=== PATIENT | male | born 1990 | race African-American/Black ===

== ENCOUNTER 2020-06-20 12:20 | Emergency (ER) | payer SELFPAY, OTHER ==
--- NOTE | 2020-06-20 13:55 | RAD REPORT ---
EXAM DESCRIPTION: RAD - Chest Single View - 06/20/2020 1:48 pm CLINICAL HISTORY: COUGH Chest pain. COMPARISON: No comparisons FINDINGS: Portable technique limits examination quality. The lungs are grossly clear. The heart is normal in size. No displaced fractures. IMPRESSION: No acute intrathoracic process suspected.
--- NOTE | 2020-06-20 14:39 | ER ---
Nurse's Notes [facility] Name: Randolph Soto Age: 30 yrs Sex: Male : 1990 Arrival Date: 06/20/2020 Time: 12:23 Bed 23 Private MD: Diagnosis: Acute upper respiratory infection, unspecified Presentation: 06/20 12:47 Chief complaint: Patient states: Sore throat, cough/congestion, body aches, SOB for 1 ll1 day. Coronavirus screen: Client denies travel out of the [place] in the last 14 days. congestion, cough unrelated to allergies, difficulty breathing, fatigue, muscle pain, nausea, sore throat, loss of taste or smell, Client presents with at least one sign or symptom that may indicate coronavirus-19. Standard/surgical mask placed on the client. Ebola Screen: Patient denies travel to an Ebola-affected area in the 21 days before illness onset. Initial Sepsis Screen: Does the patient meet any 2 criteria? No. Patient's initial sepsis screen is negative. Risk Assessment: Do you want to hurt yourself or someone else? Patient reports no desire to harm self or others. Onset of symptoms was June 20, 2020. 12:47 Method Of Arrival: Wheelchair ll1 12:47 Acuity: [place] 3 ll1 13:41 Initial Sepsis Screen: Does the patient have a suspected source of infection? No. ca1 Patient's initial sepsis screen is negative. Historical: - Allergies: 12:49 No Known Allergies; ll1 - PMHx: 12:49 Asthma; ll1 - PSHx: 12:49 None; ll1 - Immunization history:: Flu vaccine is not up to date. - Social history:: Smoking status: Patient reports the use of cigarette tobacco products, smokes one pack cigarettes per day. Screenin:52 Abuse screen: Denies threats or abuse. Denies injuries from another. Nutritional ca1 screening: No deficits noted. Tuberculosis screening: No symptoms or risk factors identified. Fall Risk None identified. Assessment: 12:52 General: Appears in no apparent distress. comfortable, Behavior is calm, cooperative, ca1 appropriate for age. Pain: Pain: Complains of pain in throat Pain began today. Neuro: Level of Consciousness is awake, alert, obeys commands, Oriented to person, place, time, situation. Cardiovascular: Heart tones S1 S2 present Capillary refill < 3 seconds Patient's skin is warm and dry. Respiratory: Airway is patent Respiratory effort is even, unlabored, Respiratory pattern is regular, symmetrical, Breath sounds are clear bilaterally. Respiratory: Reports shortness of breath cough that is productive. GI: Abdomen is flat, non-distended, Bowel sounds present X 4 quads. Abd is soft and non tender X 4 quads. : No signs and/or symptoms were reported regarding the genitourinary system. EENT: Throat is clear Reports nasal congestion nasal discharge. Derm: Skin is intact, is healthy with good turgor, Skin is pink, warm \T\ dry. Musculoskeletal: Circulation, motion, and sensation intact. Capillary refill < 3 seconds. 13:45 Reassessment: Patient appears in no apparent distress at this time. Patient and/or ca1 family updated on plan of care and expected duration. Pain level reassessed. Patient is alert, oriented x 3, equal unlabored respirations, skin warm/dry/pink. 14:57 Reassessment: Patient appears in no apparent distress at this time. Patient and/or ca1 family updated on plan of care and expected duration. Pain level reassessed. Patient is alert, oriented x 3, equal unlabored respirations, skin warm/dry/pink. Vital Signs: 12:47 BP 123 / 83; Pulse 73; Resp 18; Temp 98.9; Pulse Ox 100% ; Weight 70.31 kg; Height 5 ll1 ft. 11 in. (180.34 cm); Pain 6/10; 13:48 BP 106 / 90; Pulse 83; Resp 16 S; Pulse Ox 100% on R/A; ca1 14:57 BP 121 / 81; Pulse 70; Resp 18 S; Pulse Ox 100% on R/A; ca1 12:47 Body Mass Index 21.62 (70.31 kg, 180.34 cm) ll1 ED Course: 12:23 Patient arrived in ED. mr 12:49 Triage completed. ll1 12:50 Arm band placed on Patient placed in an exam room, on a stretcher. ll1 12:52 Patient has correct armband on for positive identification. Bed in low position. Call ca1 light in reach. Side rails up X 1. Pulse ox on. NIBP on. 12:52 No provider procedures requiring assistance completed. Patient did not have IV access ca1 during this emergency room visit. 12:53 Parisa Tsang FNP-C [facility]. kb 12:53 Tor Caldera MD is Attending Physician. kb 13:04 Radha Kidd, RN is Primary Nurse. ca1 13:20 X-ray(s) taken. jp3 13:25 Flu and/or RSV swab sent to lab. Strep swab sent to lab. PT swabbed for COVID-19. jp3 Patient maintains SpO2 saturation greater than 95% on room air. 13:25 Strep Sent, Flu, COVID-19 Sent. jp3 13:48 Chest Single View XRAY In Process Unspecified. EDMS Administered Medications: No medications were administered Outcome: 14:39 Discharge ordered by MD. kb 14:58 Discharged to home ambulatory, with family. ca1 14:58 Condition: stable 14:58 Discharge instructions given to patient, Instructed on discharge instructions, follow up and referral plans. Demonstrated understanding of instructions, follow-up care. 14:58 Patient left the ED. ca1 Addendum: 06/22/2020 13:17 Addendum: COVID-19 Result: Negative result given to RN to notify pt. Attempted to i w contact pt regarding negative COVID-19 swab results. Unable to leave voice mail due to the number provided was either not a working number, the voice mail has not been set up, or the voice mailbox is full.. 06/23/2020 08:37 Addendum: COVID-19 Result: Negative result given to RN to notify pt. Notified pt of i w negative COVID 19 swab results. Pt advised that even with a negative test result they should remain in isolation until symptom free for 3 days without medication. Pt also advised to return to the ED for worsening symptoms. Signatures: Dispatcher [employer] EDMS Parisa Tsang FNP-C TECHNICAL SUPPORT ANALYST-Ckb Margarita Lomeli Nasrin Mckeon RN RN iw Pisarski, Jacob jp3 Radha Kidd RN RN ca1 Ashly Allison RN RN ll1 Corrections: (The following items were deleted from the chart) 06/20 13:32 13:31 Group A Streptococcus Rapid Sc+BA.LAB.BRZ drawn and sent. jp3 jp 13:32 13:31 Influenza Screen (A \T\ B)+BA.LAB.BRZ drawn and sent. jp3 jp3 13:32 13:31 CORONAVIRUS+MR.VENKAT.SIERRA drawn and sent. jp3 jp3 48 12:52 Respiratory: Airway is patent Respiratory effort is even, unlabored, Respiratory ca1 pattern is regular, symmetrical, Breath sounds are clear bilaterally. ca1 :48 12:52 Respiratory: Reports shortness of breath cough that is ca1 ca1 12:52 EENT: Throat is clear ca1 ca1
--- NOTE | 2020-06-20 14:40 | EDPHYS ---
Physician Documentation [facility] Name: Randolph Soto Age: 30 yrs Sex: Male : 1990 Arrival Date: 06/20/2020 Time: 12:23 Bed 23 Private MD: ED Physician Tor Caldera HPI: 06/20 14:42 This 30 yrs old Black Male presents to ER via Wheelchair with complaints of Sore kb Throat, Breathing Difficulty. 14:42 The patient or guardian reports cough, that is intermittent, described as mild, flu kb symptoms, low-grade fever, myalgias. Onset: The symptoms/episode began/occurred this morning. Severity of symptoms: At their worst the symptoms were mild, in the emergency department the symptoms are unchanged. Modifying factors: The symptoms are alleviated by nothing, the symptoms are aggravated by nothing. Associated signs and symptoms: Pertinent positives: fever, sore throat, Pertinent negatives: chest pain, diarrhea, ear ache, nausea, rhinorrhea, vomiting. The patient has not experienced similar symptoms in the past. The patient has not recently seen a physician. pt reports cough, congestion, fever, chills, lack of smell and taste, and sore throat that presented this morning upon waking. Historical: - Allergies: 12:49 No Known Allergies; ll1 - PMHx: 12:49 Asthma; ll1 - PSHx: 12:49 None; ll1 - Immunization history:: Flu vaccine is not up to date. - Social history:: Smoking status: Patient reports the use of cigarette tobacco products, smokes one pack cigarettes per day. ROS: 14:42 Cardiovascular: Negative for chest pain, palpitations, and edema, Abdomen/GI: Negative kb for abdominal pain, nausea, vomiting, diarrhea, and constipation, MS/Extremity: Negative for injury and deformity, Skin: Negative for injury, rash, and discoloration, Neuro: Negative for headache, weakness, numbness, tingling, and seizure. 14:42 Constitutional: Positive for body aches, chills, fatigue, fever, malaise. 14:42 ENT: Positive for rhinorrhea, sinus congestion, sore throat. 14:42 Respiratory: Positive for cough, Negative for dyspnea on exertion, hemoptysis, orthopnea, pleurisy, shortness of breath, sputum production, wheezing. Exam: 14:42 Constitutional: This is a well developed, well nourished patient who is awake, alert, kb and in no acute distress. Head/Face: Normocephalic, atraumatic. ENT: Nares patent. No nasal discharge, no septal abnormalities noted. Tympanic membranes are normal and external auditory canals are clear. Oropharynx with no redness, swelling, or masses, exudates, or evidence of obstruction, uvula midline. Mucous membranes moist. Neck: Trachea midline, no thyromegaly or masses palpated, and no cervical lymphadenopathy. Supple, full range of motion without nuchal rigidity, or vertebral point tenderness. No Meningismus. Chest/axilla: Normal chest wall appearance and motion. Nontender with no deformity. No lesions are appreciated. Cardiovascular: Regular rate and rhythm with a normal S1 and S2. No gallops, murmurs, or rubs. Normal PMI, no JVD. No pulse deficits. Respiratory: Lungs have equal breath sounds bilaterally, clear to auscultation and percussion. No rales, rhonchi or wheezes noted. No increased work of breathing, no retractions or nasal flaring. Abdomen/GI: Soft, non-tender, with normal bowel sounds. No distension or tympany. No guarding or rebound. No evidence of tenderness throughout. Skin: Warm, dry with normal turgor. Normal color with no rashes, no lesions, and no evidence of cellulitis. MS/ Extremity: Pulses equal, no cyanosis. Neurovascular intact. Full, normal range of motion. Neuro: Awake and alert, GCS 15, oriented to person, place, time, and situation. Cranial nerves II-XII grossly intact. Motor strength 5/5 in all extremities. Sensory grossly intact. Cerebellar exam normal. Normal gait. Vital Signs: 12:47 BP 123 / 83; Pulse 73; Resp 18; Temp 98.9; Pulse Ox 100% ; Weight 70.31 kg; Height 5 ll1 ft. 11 in. (180.34 cm); Pain 6/10; 13:48 BP 106 / 90; Pulse 83; Resp 16 S; Pulse Ox 100% on R/A; ca1 14:57 BP 121 / 81; Pulse 70; Resp 18 S; Pulse Ox 100% on R/A; ca1 12:47 Body Mass Index 21.62 (70.31 kg, 180.34 cm) ll1 MDM: 12:53 Patient medically screened. kb 14:39 Data reviewed: vital signs, nurses notes. Data interpreted: Pulse oximetry: on room air kb is 100 %. Interpretation: normal. Counseling: I had a detailed discussion with the patient and/or guardian regarding: the historical points, exam findings, and any diagnostic results supporting the discharge/admit diagnosis, lab results, radiology results, the need for outpatient follow up, a family practitioner, to return to the emergency department if symptoms worsen or persist or if there are any questions or concerns that arise at home. 06/20 12:53 Order name: Flu; Complete Time: 14:40 kb 06/20 12:53 Order name: Strep; Complete Time: 14:40 kb 06/20 12:53 Order name: Chest Single View XRAY; Complete Time: 13:56 kb 06/20 13:02 Order name: COVID-19 kb 06/20 14:43 Order name: Throat Culture EDMS Administered Medications: No medications were administered Disposition: 17:58 Co-signature as Attending Physician, Tor Caldera MD. rn Disposition: 06/20/20 14:39 Discharged to Home. Impression: Acute upper respiratory infection, unspecified. - Condition is Stable. - Discharge Instructions: Upper Respiratory Infection, Adult, [id number], COVID-19. - Medication Reconciliation Form, Thank You Letter, Antibiotic Education, Prescription Opioid Use, Work release form form. - Follow up: Emergency Department; When: As needed; Reason: Worsening of condition. Follow up: Private Physician; When: 2 - 3 days; Reason: Recheck today's complaints, Continuance of care, Re-evaluation by your physician. Signatures: Dispatcher [employer] EDMS Parisa Tsang, CHIEF WARDEN-C CHIEF WARDEN-Tor Workman MD MD rn Acob, Radha, RN RN ca1 Ashly Allison RN RN ll1 Corrections: (The following items were deleted from the chart) 14:58 14:39 06/20/2020 14:39 Discharged to Home. Impression: Acute upper respiratory ca1 infection, unspecified. Condition is Stable. Forms are Medication Reconciliation Form, Thank You Letter, Antibiotic Education, Prescription Opioid Use. Follow up: Emergency Department; When: As needed; Reason: Worsening of condition. Follow up: Private Physician; When: 2 - 3 days; Reason: Recheck today's complaints, Continuance of care, Re-evaluation by your physician. kb
[2020-06-20 15:41] VITALS: TEMP 98.9; O2SAT 100
[2020-06-20 15:44] VITALS: BP 121/81
== END 2020-06-20 14:58 | disposition home or self-care (01) ==
LOC: ER 12:20
DX: J06.9 Acute upper respiratory infection, unspecified (principal); Z20.828 Contact with and (suspected) exposure to other viral communicable diseases; F17.210 Nicotine dependence, cigarettes, uncomplicated
CPT/HCPCS: 71045; 87070; 87081; 87804; 99284; U0002

== ENCOUNTER 2021-01-21 09:45 | Emergency (ER) | payer SELFPAY ==
[2021-01-21] MEDS ORDERED: MORPHINE 4 MG/ML SYR ONE ×2 (11:00→11:34)
[2021-01-21] MEDS ORDERED: ONDANSETRON 4 MG/2 ML VIAL ONE (11:00)
[2021-01-21 11:04] LABS: BUN Blood Urea Nitrogen 13 mg/dL (7-18); Bicarbonate 26 mmol/L (21-32); Glucose Level 85 mg/dL (74-106); Potassium 4.2 mmol/L (3.5-5.1); Sodium Level 141 mmol/L (136-145)
[2021-01-21 11:08] LABS: Absolute Lymphocytes (CBC) 1.8 K/uL (0.7-4.9); Basophils % 1.1 % (0-1.3); Hematocrit 42.8 % (39.6-49.0); Lymphocytes % 24.1 % (15.3-44.8); MPV 7.9 fL (7.6-11.3)
--- NOTE | 2021-01-21 11:30 | RAD REPORT ---
EXAM DESCRIPTION: CT - Head C Spine Cap Amira Tamez - 01/21/2021 11:11 am CLINICAL HISTORY: Trauma, head and neck injury. Chest, abdomen and pelvis pain. Back and neck pain COMPARISON: No comparisons TECHNIQUE: CT head without contrast. CT cervical spine without contrast with coronal and sagittal reformatted images. CT chest, abdomen and pelvis with IV contrast (approximately 100 mL nonionic IV contrast) with juarez l and sagittal reformatted images of the spine. All CT scans are performed using dose optimization technique as appropriate and may include automated exposure control or mA/KV adjustment according to patient size. FINDINGS: CT HEAD WITHOUT CONTRAST: No intracranial hemorrhage, hydrocephalus or extra-axial fluid collection. No areas of brain edema o r midline shift. The paranasal sinuses and mastoids are clear. The calvarium is intact. CT CERVICAL SPINE WITHOUT CONTRAST: No fracture or subluxation. The prevertebral soft tissues are normal in thickness. CT CHEST, ABDOMEN, PELVIS WITH CONTRAST: The lungs are clear.No pneumothorax or pericardial/pleural fluid. No evidence of intra-abdominal visceral injury, free fluid or free air. No concerning pelvic findings. No fractures. IMPRESSION: Negative for acute traumatic findings.
--- NOTE | 2021-01-21 11:55 | EDPHYS ---
Physician Documentation [facility] Name: Randolph Soto Age: 30 yrs Sex: Male : 1990 Arrival Date: 01/21/2021 Time: 09:50 Bed 5 Private MD: ED Physician Matthew Post HPI: 01/21 10:43 This 30 yrs old Black Male presents to ER via Ambulatory with complaints of Fall Injury pm1 -Painful Breathing. 10:43 Onset: The symptoms/episode began/occurred just prior to arrival. Associated signs and pm1 symptoms: Pertinent positives: upper back pain and pain with deep breathing, Pertinent negatives: chest pain, shortness of breath, Headache or neck pain. No extremity pain or hip pain. No abdominal pain. 10:43 Modifying factors: The patient symptoms are alleviated by nothing, the patient symptoms pm1 are aggravated by movement. The patient has not experienced similar symptoms in the past. The patient has not recently seen a physician. Patient tripped on toy on stairs in apartment complex. he was carrying his 1.3 year old child so he spun while falling and landed on his back and slid down 10 steps of stairs. No LOC, head injury or headache. Patient denies neck pain. Historical: - Allergies: 10:08 No Known Allergies; jl7 - Home Meds: 10:08 None [Active]; jl7 - PMHx: 10:08 Asthma; jl7 - PSHx: 10:08 None; jl7 - Immunization history:: Adult Immunizations up to date, Client reports receiving the 1st dose of the Covid vaccine, January 19, 2021. - Social history:: Smoking status: Patient reports the use of cigarette tobacco products, smokes one-half pack cigarettes per day. ROS: 10:43 Constitutional: Negative for fever, chills, and weight loss, Eyes: Negative for injury, pm1 pain, redness, and discharge, ENT: Negative for injury, pain, and discharge, Neck: Negative for injury, pain, and swelling, Cardiovascular: Negative for chest pain, palpitations, and edema. 10:43 Abdomen/GI: Negative for abdominal pain, nausea, vomiting, diarrhea, and constipation. 10:43 MS/Extremity: Negative for injury and deformity, Skin: Negative for injury, rash, and discoloration, Neuro: Negative for headache, weakness, numbness, tingling, and seizure. 10:43 Respiratory: Positive for pain with deep breathing, Negative for cough, shortness of breath. 10:43 Back: Positive for pain to upper back. Exam: 10:43 Constitutional: This is a well developed, well nourished patient who is awake, alert, pm1 and in no acute distress. Head/Face: Normocephalic, atraumatic. Eyes: Pupils equal round and reactive to light, extra-ocular motions intact. Lids and lashes normal. Conjunctiva and sclera are non-icteric and not injected. Cornea within normal limits. Periorbital areas with no swelling, redness, or edema. ENT: Nares patent. No nasal discharge, no septal abnormalities noted. Tympanic membranes are normal and external auditory canals are clear. Oropharynx with no redness, swelling, or masses, exudates, or evidence of obstruction, uvula midline. Mucous membranes moist. 10:43 Chest/axilla: Normal chest wall appearance and motion. Nontender with no deformity. No lesions are appreciated. Cardiovascular: Regular rate and rhythm with a normal S1 and S2. No gallops, murmurs, or rubs. Normal PMI, no JVD. No pulse deficits. Respiratory: Lungs have equal breath sounds bilaterally, clear to auscultation and percussion. No rales, rhonchi or wheezes noted. No increased work of breathing, no retractions or nasal flaring. Abdomen/GI: Soft, non-tender, with normal bowel sounds. No distension or tympany. No guarding or rebound. No evidence of tenderness throughout. 10:43 Skin: Warm, dry with normal turgor. Normal color with no rashes, no lesions, and no evidence of cellulitis. MS/ Extremity: Pulses equal, no cyanosis. Neurovascular intact. Full, normal range of motion. 10:43 Neck: C-spine: vertebral tenderness, appreciated at lower neck. 10:43 Back: pain, of the left scapular area and right scapular area, normal spinal alignment noted, vertebral tenderness not present on back. 10:43 Neuro: Orientation: is normal, Mentation: is normal, Motor: is normal, moves all fours, Sensation: is normal, no obvious gross deficits, Gait: is steady, at a normal pace, without difficulty. Vital Signs: 10:05 BP 139 / 91; Pulse 68; Resp 17; Temp 97.6; Pulse Ox 100% ; Weight 70.31 kg; Height 5 jl7 ft. 11 in. (180.34 cm); Pain 8/10; 11:19 BP 123 / 77; Pulse 66; Resp 16; Pulse Ox 100% ; sv 11:45 BP 127 / 77; Pulse 56; Resp 18; Pulse Ox 99% on R/A; Pain 6/10; ss 10:05 Body Mass Index 21.62 (70.31 kg, 180.34 cm) jl7 MDM: 10:14 Patient medically screened. adan 11:54 Data reviewed: vital signs. Data interpreted: Pulse oximetry: on room air is 100 %. pm1 Interpretation: normal. Counseling: I had a detailed discussion with the patient and/or guardian regarding: the historical points, exam findings, and any diagnostic results supporting the discharge/admit diagnosis, lab results, radiology results, the need for outpatient follow up, to return to the emergency department if symptoms worsen or persist or if there are any questions or concerns that arise at home. 01/21 10:26 Order name: Basic Metabolic Panel; Complete Time: 11:14 pm1 01/21 10:26 Order name: CBC with Diff; Complete Time: 11:14 pm1 01/21 10:26 Order name: CT Traumagram (Head C Spine CAP W Con); Complete Time: 11:33 pm1 01/21 10:26 Order name: Type And Screen; Complete Time: 11:31 pm1 01/21 10:26 Order name: Labs collected and sent; Complete Time: 10:44 pm1 01/21 10:27 Order name: IV Saline Lock; Complete Time: 10:44 pm01/21 10:27 Order name: C-Collar; Complete Time: 10:44 pm1 Administered Medications: 10:40 Drug: Zofran (Ondansetron) 4 mg Route: IVP; Site: right antecubital; em 11:15 Follow up: Response: No adverse reaction em 10:42 Drug: morphine 4 mg Route: IVP; Site: right antecubital; em 11:10 Follow up: Response: No adverse reaction; No change in condition; Pain is unchanged, em physician notified 11:15 Drug: morphine 4 mg Route: IVP; Site: right antecubital; em 12:06 Follow up: Response: No adverse reaction; Marked relief of symptoms; Pain is decreased; ss RASS: Alert and Calm (0) Disposition: 01/21/21 11:55 Discharged to Home. Impression: Contusion of back wall of thorax, Strain of muscle, fascia and tendon at neck level, Fall (on) (from) other stairs and steps. - Condition is Stable. - Discharge Instructions: Contusion, Muscle Strain. - Prescriptions for Tylenol- Codeine #3 300-30 mg Oral Tablet - take 2 tablets by ORAL route every 4-6 hours As needed; 20 tablet. Cyclobenzaprine 10 mg Oral Tablet - take 1 tablet by ORAL route every 8 hours As needed; 30 tablet. Diclofenac Sodium 75 mg Oral Tablet, Delayed Release (E.C.) - take 1 tablet by ORAL route 2 times per day As needed; 30 tablet. - Medication Reconciliation Form, Thank You Letter, Antibiotic Education, Prescription Opioid Use, Work release form form. - Follow up: Emergency Department; When: As needed; Reason: Worsening of condition. Follow up: Private Physician; When: 2 - 3 days; Reason: Recheck today's complaints, Continuance of care, Re-evaluation by your physician. - Problem is new. - Symptoms have improved. Addendum: 01/23/2021 09:39 Co-signature as Attending Physician, Matthew Post MD I agree with the assessment and c ruiz plan of care. Signatures: Dispatcher [employer] Matthew Samuel MD MD cha Munoz, Edgar, RN RN em Jean Claude Zamora, CAROLINE ZOO VETERINARIAN pm1 Alejandro Tyler RN RN jl7 Alexia Quirzo RN ss Corrections: (The following items were deleted from the chart) 01/21 12:11 11:55 01/21/2021 11:55 Discharged to Home. Impression: Contusion of back wall of em thorax; Strain of muscle, fascia and tendon at neck level; Fall (on) (from) other stairs and steps. Condition is Stable. Forms are Work release form, Medication Reconciliation Form, Thank You Letter, Antibiotic Education, Prescription Opioid Use. Follow up: Emergency Department; When: As needed; Reason: Worsening of condition. Follow up: Private Physician; When: 2 - 3 days; Reason: Recheck today's complaints, Continuance of care, Re-evaluation by your physician. Problem is new. Symptoms have improved. pm1
--- NOTE | 2021-01-21 11:55 | ER ---
Nurse's Notes [facility] Name: Randolph Soto Age: 30 yrs Sex: Male : 1990 Arrival Date: 01/21/2021 Time: 09:50 Bed 5 Private MD: Diagnosis: Contusion of back wall of thorax;Strain of muscle, fascia and tendon at neck level;Fall (on) (from) other stairs and steps Presentation: 01/21 10:05 Chief complaint: Patient states: Tripped over a toy on the stairs and fell straight jl7 onto the concrete, fell from 10 steps up straight onto ground, c/o upper back pain and difficulty taking a deep breath, pain in the back with deep breaths. Coronavirus screen: Client denies travel out of the [place] in the last 14 days. At this time, the client does not indicate any symptoms associated with coronavirus-19. Ebola Screen: No symptoms or risks identified at this time. Initial Sepsis Screen: Does the patient meet any 2 criteria? No. Patient's initial sepsis screen is negative. Does the patient have a suspected source of infection? No. Patient's initial sepsis screen is negative. Risk Assessment: Do you want to hurt yourself or someone else? Patient reports no desire to harm self or others. Onset of symptoms was January 21, 2021 at 09:50. Care prior to arrival: None. 10:05 Method Of Arrival: Ambulatory jl7 10:05 Acuity: [place] 3 jl7 Triage Assessment: 10:08 General: Appears in no apparent distress. uncomfortable, Behavior is calm, cooperative, jl7 appropriate for age. Pain: Complains of pain in thoracic area Pain currently is 8 out of 10 on a pain scale. Musculoskeletal: Tenderness present in thoracic area. Historical: - Allergies: 10:08 No Known Allergies; jl7 - Home Meds: 10:08 None [Active]; jl7 - PMHx: 10:08 Asthma; jl7 - PSHx: 10:08 None; jl7 - Immunization history:: Adult Immunizations up to date, Client reports receiving the 1st dose of the Covid vaccine, January 19, 2021. - Social history:: Smoking status: Patient reports the use of cigarette tobacco products, smokes one-half pack cigarettes per day. Screenin:15 Abuse screen: Denies threats or abuse. Denies injuries from another. Nutritional sv screening: No deficits noted. Tuberculosis screening: No symptoms or risk factors identified. Fall Risk None identified. Assessment: 10:30 General: Appears in no apparent distress. uncomfortable, Behavior is calm, cooperative. em Pain: Complains of pain in back of neck and back and thoracic area Pain currently is 8 out of 10 on a pain scale. Neuro: Level of Consciousness is awake, alert, obeys commands, Oriented to person, place, time, situation, Denies LOC or head injury. Cardiovascular: Capillary refill < 3 seconds Patient's skin is warm and dry. Respiratory: Airway is patent Respiratory effort is even, unlabored, Respiratory pattern is regular, symmetrical. GI: Patient currently denies nausea, vomiting. Derm: Skin is intact, is healthy with good turgor, Skin is pink, warm \T\ dry. Musculoskeletal: Capillary refill < 3 seconds, Range of motion: intact in all extremities. 11:10 Reassessment: Patient appears in no apparent distress at this time. reports pain is em unchanged. 11:45 Reassessment: Patient appears in no apparent distress at this time. Patient and/or ss family updated on plan of care and expected duration. Pain level reassessed. Patient is alert, oriented x 3, equal unlabored respirations, skin warm/dry/pink. Vital Signs: 10:05 BP 139 / 91; Pulse 68; Resp 17; Temp 97.6; Pulse Ox 100% ; Weight 70.31 kg; Height 5 jl7 ft. 11 in. (180.34 cm); Pain 8/10; 11:19 BP 123 / 77; Pulse 66; Resp 16; Pulse Ox 100% ; sv 11:45 BP 127 / 77; Pulse 56; Resp 18; Pulse Ox 99% on R/A; Pain 6/10; ss 10:05 Body Mass Index 21.62 (70.31 kg, 180.34 cm) jl7 ED Course: 09:50 Patient arrived in ED. ds1 10:08 Triage completed. jl7 10:08 Arm band placed on right wrist. jl7 10:10 Jean Claude Zamora NP is PHCP. pm1 10:10 Matthew Post MD is Attending Physician. pm1 10:11 Mariama Cassidy RN is Primary Nurse. sv 10:15 Patient has correct armband on for positive identification. Bed in low position. Call light in reach. 10:30 Initial lab(s) drawn, by me, sent to lab. EKG done, by ED staff, reviewed by Jean Claude Zamora ADMINISTRATIVE SUPPORT CLERK. Inserted saline lock: 20 gauge in right antecubital area, using aseptic technique. Blood collected. 10:40 Rigid cervical collar applied and checked by physician. em 11:11 CT Traumagram (Head C Spine CAP W Con) In Process Unspecified. EDMS 12:05 No provider procedures requiring assistance completed. IV discontinued, intact, ss bleeding controlled, No redness/swelling at site. Pressure dressing applied. Administered Medications: 10:40 Drug: Zofran (Ondansetron) 4 mg Route: IVP; Site: right antecubital; em 11:15 Follow up: Response: No adverse reaction em 10:42 Drug: morphine 4 mg Route: IVP; Site: right antecubital; em 11:10 Follow up: Response: No adverse reaction; No change in condition; Pain is unchanged, em physician notified 11:15 Drug: morphine 4 mg Route: IVP; Site: right antecubital; em 12:06 Follow up: Response: No adverse reaction; Marked relief of symptoms; Pain is decreased; ss RASS: Alert and Calm (0) Outcome: 11:55 Discharge ordered by MD. pm1 12:10 Discharged to home ambulatory, with family. em 12:10 Condition: good 12:10 Discharge instructions given to patient, Instructed on discharge instructions, follow up and referral plans. no drinking with medication, no driving heavy equipment, medication usage, Demonstrated understanding of instructions, follow-up care, medications, Prescriptions given X 3. 12:11 Patient left the ED. em Signatures: Dispatcher [employer] Mariama Saunders RN RN sv Munoz, Edgar, RN RN Halima Villa ds1 Alexia Quiroz RN RN ss Marinas, Patrick, NP ADMINISTRATIVE SUPPORT CLERK pm1 Alejandro Tyler RN RN jl7
[2021-01-21 12:35] VITALS: TEMP 97.6
[2021-01-21 12:38] VITALS: BP 127/77; O2SAT 99
== END 2021-01-21 12:11 | disposition home or self-care (01) ==
LOC: ER 09:45
DX: S16.1XXA Strain of muscle, fascia and tendon at neck level, initial encounter (principal); S20.229A Contusion of unspecified back wall of thorax, initial encounter; W10.9XXA Fall (on) (from) unspecified stairs and steps, initial encounter; F17.210 Nicotine dependence, cigarettes, uncomplicated; J45.909 Unspecified asthma, uncomplicated
CPT/HCPCS: 36415; 70450; 71260; 72125; 74177; 80048; 85025; 86850; 86900; 86901; 96374; 96375; 99284; J2405; Q9967